=== PATIENT | female | born 1980 | race Caucasian/White ===

== ENCOUNTER 2017-08-28 10:04 | Day surgery (SDC) | payer OTHER ==
[~2017-08-28] VITALS: Ht 172.7 cm; Wt 88.5 kg
[~2017-08-28 10:04] MED LIST: BUPROPION XL300 MG PO; DROSPIRENONE-E1 EACH PO; MONTELUKAST SOD10 MG PO; RIZATRIPTAN5 MG PO; TRAZODONE HCL100 MG PO
--- NOTE | 2017-08-28 13:50 | NUR ---
08/28/17 1350 Danika Bailon 1336 PT ARRIVED DROWSY, PT REORIENTED TO PACU. 1340 O2 REMOVED. 1346 MD AT BEDSIDE. 1350 PT SITTING IN HIGH FOWLERS AND SIPPING WATER.
--- NOTE | 2017-08-28 19:02 | OR ---
[facility] [address] [place], [place] [address] Signed DATE OF OPERATION: 08/28/2017 SURGEON: Caren Cook MD PREOPERATIVE DIAGNOSIS: Episodic left lower abdominal pain and episodic rectal bleeding. POSTOPERATIVE DIAGNOSIS: Normal-appearing colon and ilium. PROCEDURE: Total colonoscopy to cecum with intubation of ileum and biopsies of ileum and rectum. ANESTHESIA: Intravenous sedation, fentanyl 150 mcg, Versed 10 mg. INDICATION: This 36-year-old white woman is a patient of Dr. 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 She has had complaints of left lower abdominal bloating type pain over time. She has had episodic small amount of rectal bleeding as well. She has no family history of inflammatory bowel disease or family history of colon cancer. However, her grandfather may have had colon cancer at age 80, upon further reflection, she thinks. She is admitted at this time to undergo colonoscopy. Understands the risks of bleeding, infection, and perforation. FINDINGS: The prep was excellent. Complete colonoscopy was undertaken to the cecum with intubation of the ileum as well. There was no evidence of polyps, diverticular formation, colitis, or cancer. There were no hemorrhoids. Intubation of the ileum showed no terminal ileitis. DESCRIPTION OF PROCEDURE: The patient was brought to the endoscopy suite and placed in lateral decubitus position given intravenous sedation to the point of slurred speech and nystagmus. Digital rectal examination was normal. An Olympus video colonoscope was passed in the rectum and manipulated throughout the colon ultimately intubating the cecum itself. The ileocecal valve was normal. The scope was eventually manipulated into the ileum where the mucosa appeared normal as well. Biopsies were taken nevertheless. The scope was then withdrawn and examination Electronically Signed By: CAREN COOK MD 08/28/17 1902 PATIENT NAME: FREID REY OPERATIVE REPORT DATE OF : 76 REPORT #: [id number] PHYSICIAN: CAREN COOK MD PCP: CHUYITA JULIO MD REPORT IS CONFIDENTIAL AND NOT TO BE RELEASED WITHOUT AUTHORIZATION [facility] [address] [place], [place] [address] Signed of the cecum showed it to be entirely normal. Careful withdrawal of scope and examination throughout the scope via colon showed no evidence of polyps, diverticular formation, colitis, or cancer. Biopsies were taken of the rectum to assess for occult colitis. Retroflexed view was normal. Good demonstration of the dentate line was noted. Biopsies were taken of the rectum. The scope was then removed. The patient was taken to recovery in good condition. CONCLUDING DIAGNOSIS: Normal-appearing colon and ilium. Uncertain source of bleeding episode and also left lower abdominal pain. Although not all diverticula were seen with colonoscopy, this may represent a more functional problem for which a low FODMAP diet trial may be appropriate. We will initiate a low FODMAP high-fiber diet and she will see us back in the office in 4-6 weeks for evaluation of her progress. MD POORNIMA Conroy/MUKUL /[id number] cc: MD Halima Chappell MD Copies: CHUYITA JULIO MD, PATRICIA J MD ~ Electronically Signed By: CAREN COOK MD 08/28/17 1902 PATIENT NAME: FREDI REY OPERATIVE REPORT DATE OF : 76 REPORT #: [id number] PHYSICIAN: CAREN COOK MD PCP: CHUYITA JULIO MD REPORT IS CONFIDENTIAL AND NOT TO BE RELEASED WITHOUT AUTHORIZATION
== END 2017-08-28 14:11 | disposition home or self-care (01) ==
LOC: DS 10:04 → OPS 10:04 → DS 13:00 → OPS 13:00
PROVIDERS: Surgery
PROC: 0DBP8ZX Excision of Rectum, Via Natural or Artificial Opening Endoscopic, Diagnostic (ICD-10-PCS; 2017-08-28)
PROC: 0DBB8ZX Excision of Ileum, Via Natural or Artificial Opening Endoscopic, Diagnostic (ICD-10-PCS; principal; 2017-08-28 11:00)
DX: K62.5 Hemorrhage of anus and rectum (principal); Z87.891 Personal history of nicotine dependence; Z80.0 Family history of malignant neoplasm of digestive organs
CPT/HCPCS: 99153; G0500; J2250; J3010; J7120

== ENCOUNTER 2023-05-28 09:30 | Day surgery (SDC) | payer BC ==
[~2023-05-28] VITALS: Ht 172.7 cm; Wt 91.0 kg
[2023-05-28 09:49] VITALS: BP 123/87
[2023-05-28] MEDS ORDERED: IBU800 MG PO (09:59)
--- NOTE | 2023-05-28 12:06 | NUR ---
05/28/23 1206 Sheets,Danika 1200 PT ARRIVED TO PACU ON 2L VIA NC, PT AWAKES EASILY AND DENIES CONCERNS. PT PASSING SMALL AMOUNT OF GAS/AIR NEEDED.
[2023-05-28 12:25] VITALS: BP 121/90
--- NOTE | 2023-05-28 14:34 | OR ---
[facility] [place] [facility] [address] [place], [place] [address] Signed DATE OF OPERATION: 05/28/2023 SURGEON: Caren Cook MD PREOPERATIVE DIAGNOSES: 1. Clinical gastroesophageal reflux symptoms without specific treatment. 2. History of rectal bleeding. POSTOPERATIVE DIAGNOSES: 1. Hiatal hernia, moderate size with distal esophagitis without evidence of Vega's epithelium. 2. Possible felinization of the esophagus (question eosinophilic esophagitis) with associated hiatal hernia. 3. Diverticular changes of the sigmoid colon. PROCEDURES: 1. Esophagogastroduodenoscopy with biopsy. 2. Total colonoscopy to cecum. ANESTHESIA: Intravenous sedation; fentanyl 150 mcg, Versed 9 mg total. 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 She has had long-standing gastroesophageal reflux. She takes no medications for this currently. She does not have hematemesis, but she has had some blood per rectum. She is not currently taking any PPI medication. She does have family history of pancreatic cancer in her father and no family history of colon cancer that she is aware of. She is admitted at this time to undergo upper endoscopy and colonoscopy to better characterize her issues of reflux as well as constipation and history of rectal bleeding from time to time. The risk of bleeding, infection, and perforation related to endoscopy and colonoscopy were reviewed with her. She understands and wished to proceed. FINDINGS: Upper endoscopy confirmed hiatal hernia and distal esophagitis. There was felinization of the mid esophagus and the possibility of eosinophilic esophagitis remains. CLOtest was negative 30 minutes post procedure. On colonoscopy, the prep was excellent. Complete colonoscopy was undertaken of the cecum. The only findings noted were a few scattered diverticula of the sigmoid, but Electronically Signed By: CAREN COOK MD 05/28/23 1434 PATIENT NAME: FREDI REY OPERATIVE REPORT DATE OF : [birth year] REPORT #: [id number] PHYSICIAN: CAREN COOK MD PCP: MELVI FERGUSON PA-C REPORT IS CONFIDENTIAL AND NOT TO BE RELEASED WITHOUT AUTHORIZATION [facility] [place] [facility] [address] [place], [place] [address] Signed there was no evidence of polyps or cancer or colitis and no evidence of recurrent hemorrhoidal disease. DESCRIPTION OF PROCEDURE: The patient was brought to the endoscopy suite and given topical lidocaine hypopharyngeal anesthesia and placed in lateral decubitus position. She was given intravenous sedation with full cardiopulmonary monitoring to the point of slurred speech and nystagmus. A bite block was placed. An Olympus video upper endoscope was passed in the hypopharynx. The vocal cords were briefly visualized as normal. Scope was advanced to the esophagus and throughout its length it was normal except in the distal portion where esophagitis with linear erosions were noted. The scope was passed to the stomach which was insufflated with air. There was no evidence of bile or other finding. Rugal folds were normal. The antrum had mild edema. The pylorus was normal. Scope was passed through into the duodenum which was normal. Biopsies were obtained to assess for celiac disease. The scope was withdrawn. Biopsy was then taken of the antrum for both GEOVANNA and pathologic testing. Retroflexed view was undertaken showing moderate-sized hiatal hernia. Scope was withdrawn to the distal esophagus where biopsies were taken of the inflammatory areas in question. There was no evidence of Vega's epithelium, actual stricture, and certainly no neoplasm or varices. Further withdrawal showed felinization of the mid esophagus slightly suspicious for eosinophilic esophagitis. Biopsies were obtained. The scope was then withdrawn and removed. Plans were then made for colonoscopy. Additional sedation was given and digital rectal examination was found to be normal. An Olympus video colonoscope was passed in the rectum and manipulated throughout the colon ultimately intubating the cecum itself. A notably good bowel prep was seen. The scope was carefully withdrawn and examination throughout showed no sign of abnormality into the sigmoid where there were a few scattered diverticula, it was not extensive by any means. Retroflexed view was undertaken, which was normal. The scope was removed and the patient was then taken to recovery room in good condition. CONCLUDING DIAGNOSES: 1. Distal esophagitis with associated hiatal hernia, possible eosinophilic esophagitis. 2. Sigmoid diverticulosis. PLAN: Recommend high-fiber diet or fiber supplement such as Citrucel or Metamucil with increased fluid. We will prescribe also Prilosec 20 mg p.o. daily. We will schedule a followup visit in 4 to 6 weeks. Electronically Signed By: CAREN COOK MD 05/28/23 1434 PATIENT NAME: FREDI REY OPERATIVE REPORT DATE OF : [birth year] REPORT #: [id number] PHYSICIAN: CAREN COOK MD PCP: MELVI FERGUSON PA-C REPORT IS CONFIDENTIAL AND NOT TO BE RELEASED WITHOUT AUTHORIZATION [address] [address] Signed MD POORNIMA Conroy/MODL /[id number] Copies: ~ Electronically Signed By: CAREN COOK MD 05/28/23 1434 PATIENT NAME: CANDIDOFREDI OPERATIVE REPORT DATE OF : [birth year] REPORT #: [id number] PHYSICIAN: CAREN COOK MD PCP: MELVI FERGUSON PA-C REPORT IS CONFIDENTIAL AND NOT TO BE RELEASED WITHOUT AUTHORIZATION
--- NOTE | 2023-06-01 14:00 | PATH ---
[facility] [address] [place], [place] [address] Signed SPECIMEN(S): A DUODENAL BIOPSY SPECIMEN(S): B DUODENAL BULB BIOPSY SPECIMEN(S): C ANTRUM BIOPSY SPECIMEN(S): D LOWER ESOPHAGEAL BIOPSY SPECIMEN(S): E MIDDLE ESOPHAGEAL BIOPSY SPECIMEN SOURCE: A. DUODENAL BIOPSY B. DUODENAL BULB BIOPSY C. ANTRUM BIOPSY D. LOWER ESOPHAGEAL BIOPSY E. MIDDLE ESOPHAGEAL BIOPSY CLINICAL HISTORY: Pre: Heartburn, dysphagia, rectal bleeding. Post: Hiatal hernia, distal esophagitis, possible eosinophilic esophagitis, minimal diverticulae. FINAL PATHOLOGIC DIAGNOSIS: A. Duodenum, biopsy: - Duodenal mucosa with no significant pathologic changes B. Duodenum, bulb, biopsy: - Duodenal mucosa with focal peptic injury C. Stomach, antrum, biopsy: - Gastric antral mucosa with no significant pathologic changes - Negative for Helicobacter pylori with HE stains D. Esophagus, lower, biopsy: - Squamoglandular mucosa with reflux esophagitis and focal intraepithelial eosinophils (up to five eosinophils per high-power field) - Negative for intestinal metaplasia E. Esophagus, middle, biopsy: - Esophageal squamous mucosa with active esophagitis and increased intraepithelial eosinophils (up to 20 eosinophils per high-power field) COMMENT: For parts D and E, in the appropriate clinical and endoscopic setting these findings would be consistent with eosinophilic esophagitis, though the histologic differential diagnosis would include severe reflux esophagitis. Correlation with clinical and endoscopic information is needed. BRP PATIENT NAME: CANDIDOFREDI PATHOLOGY DATE OF : 76 REPORT #: [id number] PHYSICIAN: CLAUDE BECKER PCP: MELVI FERGUSON PA-C REPORT IS CONFIDENTIAL AND NOT TO BE RELEASED WITHOUT AUTHORIZATION [facility] [address] [place], [place] [address] Signed MICROSCOPIC EXAMINATION: Histologic sections of all submitted blocks are examined by light microscopy. These findings, together with the gross examination, support the pathologic diagnosis. GROSS DESCRIPTION: A. The specimen, labeled and designated "Rey, duodenal biopsy," is received in formalin and consists of three posey soft tissue fragments, ranging from 0.1-0.6 cm. Entirely submitted in (A1). B. The specimen, labeled and designated "Rey, duodenal bulb biopsy," is received in formalin and consists of one posey soft tissue fragment, 0.3 cm. Entirely submitted in (B1). C. The specimen, labeled and designated "Rey, antrum biopsy," is received in formalin and consists of two posey soft tissue fragments, ranging from 0.4-0.6 cm. Entirely submitted in (C1). D. The specimen, labeled and designated "Rey, lower esophageal biopsy," is received in formalin and consists of six posey soft tissue fragments, ranging from 0.2-0.4 cm. Entirely submitted in (D1). E. The specimen, labeled and designated "Rey, middle esophageal biopsy," is received in formalin and consists of two posey soft tissue fragments, ranging from 0.6-0.7 cm. Entirely submitted in (E1). VB (under the direct supervision of a pathologist) The Gross Description was prepared using a voice recognition system. The report was reviewed for accuracy; however, sound-alike word errors, addition and/or deletions may occur. If there is any question about this report, please contact Client Services. ADDITIONAL NOTES: Immunohistochemical and/or in situ hybridization studies if performed in this case included appropriate positive controls that reacted as expected. This test was developed and its performance characteristics determined by [facility]. It has not been cleared or approved by the U.S. Food and Drug Administration. The FDA has determined that such clearance or approval is not necessary. This test is used for clinical purposes. It should not be regarded as investigational or for research. [facility] is certified under the Clinical Laboratory Improvement Amendments of 1988 (CLIA) as qualified to perform high complexity clinical laboratory testing. PATIENT NAME: FREDI REY PATHOLOGY DATE OF : [birth year] REPORT #: [id number] PHYSICIAN: [employer] PCP: MELVI FERGUSON PA-C REPORT IS CONFIDENTIAL AND NOT TO BE RELEASED WITHOUT AUTHORIZATION [facility] [address] [place], [place] [address] Signed PERFORMING LABORATORY: Technical component was performed by [facility], [address] [place] [id number] (CLIA# [id number]). Professional interpretation was performed by [facility], [address] [address] (CLIA# [id number]). Diagnostician: Olegario Rey MD Pathologist Electronically Signed 06/01/2023 Copies: ~ PATIENT NAME: FREDI REY LIBERTAD PATHOLOGY DATE OF : [birth year] REPORT #: [id number] PHYSICIAN: CLAUDE PATHOLOGY PCP: MELVI FERGUSON PA-C REPORT IS CONFIDENTIAL AND NOT TO BE RELEASED WITHOUT AUTHORIZATION
== END 2023-05-28 12:40 | disposition home or self-care (01) ==
LOC: OPS 09:30 → DS 09:30 → OPS 11:00 → DS 12:00 → OPS 12:40
PROVIDERS: ATTEND Surgery
PROC: 0DB58ZX Excision of Esophagus, Via Natural or Artificial Opening Endoscopic, Diagnostic (ICD-10-PCS; 2023-05-28)
PROC: 0DJD8ZZ Inspection of Lower Intestinal Tract, Via Natural or Artificial Opening Endoscopic (ICD-10-PCS; 2023-05-28)
PROC: 0DB98ZX Excision of Duodenum, Via Natural or Artificial Opening Endoscopic, Diagnostic (ICD-10-PCS; principal; 2023-05-28 11:00)
PROC: 0DB68ZX Excision of Stomach, Via Natural or Artificial Opening Endoscopic, Diagnostic (ICD-10-PCS; 2023-05-28 11:00)
DX: K21.00 Gastro-esophageal reflux disease with esophagitis, without bleeding (principal); K44.9 Diaphragmatic hernia without obstruction or gangrene; K57.31 Diverticulosis of large intestine without perforation or abscess with bleeding; K59.09 Other constipation; Z79.899 Other long term (current) drug therapy
CPT/HCPCS: 84703; 99153; G0500; J2250; J3010; J7121

== ENCOUNTER 2024-03-16 05:35 | Day surgery (SDC) | payer BC ==
[2024-03-07 15:23] VITALS: BP 122/74
[~2024-03-16] VITALS: Ht 172.7 cm; Wt 88.6 kg
--- NOTE | ~2024-03-16 | OR ---
[facility] [address] [place], [place] [address] Draft DATE OF OPERATION: 03/16/2024 SURGEON: Halima Hicks MD BILLING COORDINATOR: Juan Alberto PREOPERATIVE DIAGNOSES: 1. Menorrhagia. 2. Primary dysmenorrhea. POSTOPERATIVE DIAGNOSES: 1. Menorrhagia. 2. Primary dysmenorrhea. PROCEDURES: 1. Total laparoscopically assisted vaginal hysterectomy. 2. Bilateral salpingectomy. 3. Cystoscopy. ANESTHESIA: General ET. ESTIMATED BLOOD LOSS: 25 mL. DRAINS: Moody catheter. INDICATIONS AND FINDINGS: The patient is a 43-year-old female, 1, para 1, who has been having ongoing issues with menorrhagia and dysmenorrhea with off OCPs. She did not want to continue with OCPs given her symptoms and wished to undergo definitive treatment. At the time of surgery, exam under anesthesia revealed a normal-sized uterus. At the time of laparoscopy, the pelvis appeared completely normal. DESCRIPTION OF PROCEDURE: The patient was prepped and draped in the dorsal lithotomy position. A weighted speculum was placed and the anterior lip of the cervix was visualized and grasped with a single-tooth tenaculum. The cavity sounded to 10 cm. The endocervical canal was then PATIENT NAME: FREDI REY OPERATIVE REPORT DATE OF : [birth year] REPORT #: [id number] PHYSICIAN: HALIMA HICKS MD PCP: MELVI FERGUSON PA-C REPORT IS CONFIDENTIAL AND NOT TO BE RELEASED WITHOUT AUTHORIZATION [facility] [address] [place], [place] [address] Draft dilated and the VCare cannula inserted and the balloon inflated at the fundus. The tenaculum and speculum removed. The cup was fitted over the cervix and a locking cap was fitted into place. Attention was then directed above. The infraumbilical area was injected with 0.5% Marcaine plain. An incision was made with a knife. Each layer was then serially elevated and incised until the fascia was opened and identified. Stay sutures of 0-Vicryl were placed. The peritoneum was then opened bluntly. The Sommer cannula was then placed and the balloon inflated. Placement of the scope confirmed proper positioning. CO2 was then introduced in the abdomen under low pressures. The pelvis was then evaluated the planned procedure appeared appropriate. The secondary ports were then placed. These were placed laterally and slightly below the level of the umbilicus. Each of these areas was transilluminated, injected with the Marcaine, incision made with a knife and the trocars placed under direct vision. Both of these were 5 mm ports. Following this, the patient's left tube was grasped and the mesosalpinx serially coagulated and divided from the fimbriated end to the cornu. This was retrieved through the port. The patient's right utero-ovarian ligament was then coagulated and divided multiple times as well. Attention was redirected to the left and the utero-ovarian pedicle coagulated and divided. The round ligament was then serially coagulated and divided as well. The anterior leaf of the peritoneum incised allowing for creation of a partial bladder flap. The peritoneum was taken down posteriorly as well. The uterine vessels were then skeletonized and coagulated multiple times and divided. Attention was directed to the patient's right side, the same procedure was done. The round ligament was serially coagulated and divided and the anterior peritoneum incised completing the bladder flap. The peritoneum was taken down posteriorly as well. The uterine vessels were then skeletonized and cut, coagulated multiple times. Further dissection was done both posteriorly and anteriorly, and at that point it was felt that this could be removed. The Sonicision device was used to separate the specimen from the cuff. Following this, the uterus was retrieved vaginally. The vaginal cuff was then identified vaginally and was closed with a running locking stitch of 0-Vicryl, this was done from one angle to the other. Attention was then directed above and the abdomen was copiously irrigated, inspected and bleeding points slightly to the sides of the cuff were controlled with the LigaSure device. It was also noted that there was slight opening at the cuff on the patient's left side. The patient's right tube, which was remaining was then serially divided along the mesosalpinx from the fimbriated end to the cornu and retrieved. The pelvis was re-evaluated and everything appeared to be dry. Attention was directed down below and the open area on the patient's left side was closed with the 0-Vicryl in a running locking manner. Cystoscopy was done. The Moody catheter was removed and the 30-degree scope introduced. The bladder was without any injury. Both ureteral orifices were easily identified and clear urine was seen with free egress from both of these. She had received IV fluorescein, but it was not visible at that time. The bladder was drained and the Moody catheter replaced. Attention was redirected above and the fascial incision of the umbilicus was re-identified and closed with a running suture of PATIENT NAME: FREDI REY OPERATIVE REPORT DATE OF : [birth year] REPORT #: [id number] PHYSICIAN: HALIMA HICKS MD PCP: MELVI FERGUSON PA-C REPORT IS CONFIDENTIAL AND NOT TO BE RELEASED WITHOUT AUTHORIZATION [address] [place] [address] Draft 0-Vicryl. The skin incisions were closed with subcuticular sutures of 3-0 Vicryl Rapide. All sponge and needle counts were correct. She tolerated the procedure well and was taken to the recovery room in good condition. MD BIANCA Lea/MUKUL /[id number] Copies: ~ PATIENT NAME: FREDI REY OPERATIVE REPORT DATE OF : [birth year] REPORT #: [id number] PHYSICIAN: HALIMA HICKS MD PCP: MELVI FERGUSON PA-C REPORT IS CONFIDENTIAL AND NOT TO BE RELEASED WITHOUT AUTHORIZATION
[~2024-03-16 05:35] MED LIST changes: +IBU800 MG PO; +LACTATED RINGER'S 1,000 ML IV SCH; +PROPRANOLOL HCL60 MG PO
[2024-03-16 05:51] VITALS: BP 112/72
[2024-03-16] MEDS ORDERED: propofoL 200 MG/20 ML VIAL ONE (06:49)
[2024-03-16] MEDS ORDERED: dexmedeTOMIDine HCl 200 MCG/2 ML VIAL ONE (06:49)
[2024-03-16] MEDS ORDERED: fentaNYL citrate 100 MCG/2 ML VIAL ONE (06:50)
[2024-03-16] MEDS ORDERED: LIDOCAINE HCL 1% 30 ML SDV ONE (06:50)
[2024-03-16] MEDS ORDERED: ROCURONIUM BROMIDE 50 MG/5 ML SYR ONE (06:50)
[2024-03-16] MEDS ORDERED: KETAMINE in NS 50 MG/5 ML SYR ONE (06:54)
[2024-03-16] MEDS ORDERED: CEFAZOLIN SODIUM 2 GM/20 ML SYR IV SCH (07:00)
[2024-03-16] MEDS ORDERED: IBLOOD GLUCOSE TEST STRIP 1 EA TEST VI PRN (07:00)
[2024-03-16] MEDS ORDERED: LIDOCAINE HCL 1% 5 ML SDV INJ ONE (07:00)
[2024-03-16] MEDS ORDERED: FAMOTIDINE 20 MG/ 2 ML VIAL IV SCH (07:00)
[2024-03-16] MEDS ORDERED: HEParin SOD (PORCINE) 5,000 UNIT/0.5 ML SYR SUB-Q SCH (07:00)
[2024-03-16] MEDS ORDERED: METOCLOPRAMIDE HCL 10 MG/2 ML SDV IV SCH (07:00)
[2024-03-16] MEDS ORDERED: SUGAMMADEX SODIUM 200 MG/2 ML ML ONE (07:11)
[2024-03-16] MEDS ORDERED: SODIUM CHLORIDE 0.9% 20 ML IV ONE (07:11)
[2024-03-16] MEDS ORDERED: FLUORESCEIN SODIUM 500 MG/5 ML ML ONE (07:11)
[2024-03-16] MEDS ORDERED: KETOROLAC TROMETHAMINE 30 MG/ML VIAL ONE (07:37)
[2024-03-16] MEDS ORDERED: DEXAMETHASONE SOD PHOS 4 MG/ML VIAL ONE (07:37)
[2024-03-16] MEDS ORDERED: ondansetron HCL 4 MG/2 ML VIAL ONE (07:37)
[2024-03-16] MEDS ORDERED: ePHEDrine sulfate 50 MG/ML AMP ONE (07:43)
[2024-03-16] MEDS ORDERED: ACETAMINOPHEN 1,000 MG/100 ML VIAL ONE (09:22)
[2024-03-16] MEDS ORDERED: ondansetron HCL 4 MG TAB PO PRN (09:45)
[2024-03-16] MEDS ORDERED: ondansetron HCL 4 MG/2 ML VIAL IV PRN (09:45)
[2024-03-16] MEDS ORDERED: METOCLOPRAMIDE HCL 10 MG/2 ML SDV IV PRN (09:45)
[2024-03-16] MEDS ORDERED: MAGNESIUM HYDROXIDE/AL HYDROX 30 ML CUP PO PRN (09:45)
[2024-03-16] MEDS ORDERED: MORPHINE SULFATE 10 MG/ML VIAL IV PRN (09:45)
[2024-03-16] MEDS ORDERED: FAMOTIDINE 20 MG TAB PO PRN (09:45)
[2024-03-16] MEDS ORDERED: LACTATED RINGER'S 1,000 ML IV SCH (09:45)
[2024-03-16] MEDS ORDERED: LIDOCAINE 2% VISCOUS 6 ML SYR TOP ONE (09:45)
[2024-03-16] MEDS ORDERED: NALOXONE HCL 0.4 MG SYR IV PRN (09:45)
[2024-03-16] MEDS ORDERED: PROCHLORPERAZINE EDISYLATE 10 MG/2 ML VIAL IV PRN (09:45)
[2024-03-16] MEDS ORDERED: ACETAMINOPHEN 500 MG TAB PO PRN (10:00)
[2024-03-16] MEDS ORDERED: OXYCODONE HCL 5 MG TAB PO PRN (10:00)
--- NOTE | 2024-03-16 10:00 | NUR ---
03/16/24 Kendra Schrader 0944 PT TO PACU SLEEPING ORAL AIRWAY IN PLACE. O2 VIA MASK FOGGING NOTED IN MASK. MESSINA CATH IN PLACE DRAINING AND PATENT. 0950 ORAL AIRWAY REMOVED. PT AWAKE OFF AN ON. 0955 MESSINA CATH REMOVED. 200ML OF CLEAR BRIGHT YELLOW URINE IN MESSINA BAG. O2 OFF PT MAINTAINS SATS ABOVE 95% ON ROOM AIR.
--- NOTE | 2024-03-16 10:05 | NUR ---
PT ARRIVES TO DS FROM PACU VIA STRETCHER. PT REPORTS PAIN 2/10 AND STATES PAIN IS TOLERABLE AT THIS TIME. PT PROVIDED HEAT PACK AT PT REQUEST FOR "SORENESS". SURGICAL SITES VISUALIZED W/CHACHO THOMAS. RASH ON ABDOMEN FROM ADHESIVES DURING SURGERY IMPROVING AND SLIGHTLY PINK/RED AT THIS TIME, PT REPORTS NO IRRITATION FROM THIS. ICE WATER PROVIDED AND PT TOLERATING WITHOUT DIFFICULTY SWALLOWING OR NAUSEA. REPORT RECEIVED FROM CHACHO THOMAS, PT A&O ASKING QUESTIONS APPROPRIATELY, PT DAUGHTER AT BEDSIDE. CALL LIGHT WITHIN REACH, PT REPORTS NO FURTHER NEEDS OR QUESTIONS AT THIS TIME.
[2024-03-16 10:10] VITALS: BP 118/75
[2024-03-16 11:06] VITALS: BP 122/79
--- NOTE | 2024-03-16 11:08 | NUR ---
LE 1105: PT IS DOING WELL. SHE REPORTS MINIMAL PAIN 2/10. NO NAUSEA. SHE IS TOLERATING WATER. DAUGHTER IS AT THE BEDSIDE. CALL LIGHT WITHIN REACH. SHE IS GIVEN CRACKERS TO SNACK ON. DC CRITERIA REVIEWED WITH PT AND DAUGHTER.
--- NOTE | 2024-03-16 11:53 | NUR ---
LE 1150: PT IS ASSISTED UP OOB WITH STANDBY ASSIST. SHE AMBUALTES TO THE BATHROOM WHERE SHE VOIDS 500MLS. LE 1154: PT INDICATES THAT SHE WOULD LIKE TO GO HOME. SHE IS MEETING ALL DC CRITERIA.
--- NOTE | 2024-03-16 12:11 | NUR ---
LE 1203: PT IS GIVEN VERBAL AND WRITTEN DC INSTRUCTIONS. SHE VERBALIZES UNDERSTANDING. NO QUESTIONS AT THIS TIME. LE 1205: PT IS DC'D HOME VIA . SHE IS TAKEN TO PERSONAL VEHICLE AND TRANSFERS FROM WC TO CAR WITHOUT ISSUES.
[2024-03-16] MEDS ORDERED: IBUPROFEN 800 MG TAB PO SCH (14:00)
[2024-03-16] MEDS ORDERED: SEVOFLURANE 250 ML BTL INH ONE (15:47)
--- NOTE | 2024-03-18 12:54 | PATH ---
[facility] [address], [place] [address] Signed SPECIMEN(S): A UTERUS, CERVIX AND FALLOPIAN TUBES SPECIMEN SOURCE: A. UTERUS, CERVIX AND FALLOPIAN TUBES CLINICAL HISTORY: Menorrhagia, dysmenorrhea FINAL PATHOLOGIC DIAGNOSIS: Uterus cervix and bilateral fallopian tubes, resection: - Cervix: - Nabothian cysts - Negative for dysplasia or malignancy. - Uterus: - Benign endometrium, negative for atypia or hyperplasia. - Focal adenomyosis. - Fallopian tubes and fimbria: Histologically unremarkable fallopian tubes and fimbria. NA MICROSCOPIC EXAMINATION: Histologic sections of all submitted blocks are examined by light microscopy. These findings, together with the gross examination, support the pathologic diagnosis. GROSS DESCRIPTION: The specimen, labeled and designated "Brody DioneMiguel, per requisition cervix, uterus, bilateral fallopian tubes," is received in formalin and consists of 107 g, 8.6 cm fundus to cervix, 6.2 cm cornu to cornu, 4.5 cm anterior to posterior uterus with detached bilateral fallopian tubes. There are no ovaries present. The attached cervix measures 3 x 2.8 cm and has a 1 cm slitlike os. The endometrial cavity measures 4.3 x 0.9 cm and has a posey-red endometrium averaging 0.3 cm in thickness. The myometrium is posey-pink and trabecular averaging 2 cm in thickness. There are no discrete masses, lesions, or polyps. There are 2 fallopian tube with undesignated laterality. The first arbitrarily designated fallopian tube measures 6.46 x 1 x 0.7 cm and has intact fimbriated and. The second arbitrarily designated fallopian tube measures 5.2 x 0.7 x 0.7 cm and has an attached fimbriated and. The serosal surface of both fallopian tubes is PATIENT NAME: FREDI REY PATHOLOGY DATE OF : 76 REPORT #: [id number] PHYSICIAN: CLAUDE PATHOLOGY PCP: MELVI FERGUSON PA-C REPORT IS CONFIDENTIAL AND NOT TO BE RELEASED WITHOUT AUTHORIZATION [facility] [address], [place] [address] Signed posey-pink and smooth but the second fallopian tube having a 0.9 x 0.7 x 0.5 cm paratubal cyst at the level of the infundibulum. The second fallopian tube is inked black and the specimens are serially sectioned revealing a pinpoint lumen. Butcherette sections are submitted as follows: Cassette Summary: (A1) anterior and posterior cervix (A2) anterior and posterior endomyometrium, full-thickness (A3) first fallopian tube with fimbriated ends totally embedded (A4) second fallopian tube with fimbriated ends totally embedded AA (under the direct supervision of a pathologist) The Gross Description was prepared using a voice recognition system. The report was reviewed for accuracy; however, sound-alike word errors, addition and/or deletions may occur. If there is any question about this report, please contact Client Services. ADDITIONAL NOTES: Immunohistochemical and/or in situ hybridization studies if performed in this case included appropriate positive controls that reacted as expected. This test was developed and its performance characteristics determined by [facility]. It has not been cleared or approved by the U.S. Food and Drug Administration. The FDA has determined that such clearance or approval is not necessary. This test is used for clinical purposes. It should not be regarded as investigational or for research. [facility] is certified under the Clinical Laboratory Improvement Amendments of 1988 (CLIA) as qualified to perform high complexity clinical laboratory testing. PERFORMING LABORATORY: Technical component was performed by [facility], [address] [place] [id number] (CLIA# [id number]). Professional interpretation was performed by [facility] - [facility], [address] [place] [id number] (CLIA#: [id number]). Diagnostician: Farshad Srinivasan MD Pathologist Electronically Signed 03/18/2024 Copies: PATIENT NAME: FREDI REY [facility] DATE OF : 76 REPORT #: [id number] PHYSICIAN: CLAUDE PATHOLOGY PCP: MELVI FERGUSON PA-C REPORT IS CONFIDENTIAL AND NOT TO BE RELEASED WITHOUT AUTHORIZATION [address] [place] [address] Signed ~ PATIENT NAME: FREDI REY PATHOLOGY DATE OF : 76 REPORT #: [id number] PHYSICIAN: CLAUDE BECKER PCP: MELVI FERGUSON PA-C REPORT IS CONFIDENTIAL AND NOT TO BE RELEASED WITHOUT AUTHORIZATION
== END 2024-03-16 12:05 | disposition home or self-care (01) ==
LOC: DS 05:35
PROVIDERS: ATTEND Obstetrics & Gynecology
PROC: 0UT9FZZ Resection of Uterus, Via Natural or Artificial Opening With Percutaneous Endoscopic Assistance (ICD-10-PCS; principal; 2024-03-16 07:30)
PROC: 0UB77ZZ Excision of Bilateral Fallopian Tubes, Via Natural or Artificial Opening (ICD-10-PCS; 2024-03-16 07:30)
DX: N80.03 Adenomyosis of the uterus (principal); N88.8 Other specified noninflammatory disorders of cervix uteri; K21.9 Gastro-esophageal reflux disease without esophagitis; Z79.899 Other long term (current) drug therapy; Z88.8 Allergy status to other drugs, medicaments and biological substances
CPT/HCPCS: 00944; J0131; J0690; J1100; J1644; J1885; J2405; J2704; J2765; J3010; J3490; J7121